=== PATIENT | male | born 1995 | race Caucasian/White ===

== ENCOUNTER 2018-08-12 03:09 | Emergency (ER) | payer OTHER ==
[2018-08-12] MEDS ORDERED: Morphine 4 MG/ML VIAL ONE ×2 (03:49→03:53)
[2018-08-12] MEDS ORDERED: Ondansetron PF 4 MG/2 ML Vial ONE (03:49)
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
[2018-08-12] MEDS ORDERED: ISOVUE-370 76%-LOCM 1 ML ONE (10:58)
== END 2018-08-12 06:16 | disposition home or self-care (01) ==
LOC: ERS 03:09
DX: S02.2XXA Fracture of nasal bones, initial encounter for closed fracture (principal); S00.03XA Contusion of scalp, initial encounter; S40.212A Abrasion of left shoulder, initial encounter; F17.220 Nicotine dependence, chewing tobacco, uncomplicated; F17.210 Nicotine dependence, cigarettes, uncomplicated; Y04.0XXA Assault by unarmed brawl or fight, initial encounter
CPT/HCPCS: 70450; 70486; 71260; 72125; 96361; 96374; 96375; J2270; J2405